=== PATIENT | male | born 1960 | race Caucasian/White ===

== ENCOUNTER 2024-05-08 10:09 | Emergency (ER) | payer OTHER, SELFPAY ==
[2024-05-08 10:10] VITALS: BP 165/99; PULSE 80; RESP 16; TEMP 36.8; O2SAT 99; BMI 27.3
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
[2024-05-08 10:47] VITALS: BP 147/87; PULSE 66; RESP 18; O2SAT 97
== END 2024-05-08 11:25 | disposition home or self-care (01) ==
LOC: ED 11:17
PROVIDERS: Emergency Provider Emergency Medicine; Visit Provider Emergency Medicine
DX: S42.022A Displaced fracture of shaft of left clavicle, initial encounter for closed fracture (principal); S20.212A Contusion of left front wall of thorax, initial encounter; V86.05XA Driver of 3- or 4- wheeled all-terrain vehicle (ATV) injured in traffic accident, initial encounter; K21.9 Gastro-esophageal reflux disease without esophagitis; K27.9 Peptic ulcer, site unspecified, unspecified as acute or chronic, without hemorrhage or perforation
CPT/HCPCS: 71101; 73000; 99282